=== PATIENT | male | born 1945 | race Caucasian/White ===

== ENCOUNTER 2018-03-09 20:16 | Emergency (ER) | payer BC ==
[~2018-03-09] VITALS: Ht 162.6 cm; Wt 88.0 kg
[2018-03-09 20:38] VITALS: Ht 162.6 cm; Wt 88.0 kg
[2018-03-09] MEDS ORDERED: METF100010 PO (22:16)
[2018-03-09] MEDS ORDERED: CYCL10TA7 PO (22:16)
[2018-03-09] MEDS ORDERED: ACET-141 PO (22:17)
[2018-03-09] MEDS ORDERED: NAPR-985 PO (23:36)
--- NOTE | 2018-03-09 23:36 | ERD ---
ER Documentation Chief Complaint Chief Complaint left leg swelling with no trauma reported HPI This 73-year-old male complains of left thigh pain and mild swelling. He denies any fevers chills nausea or vomiting. Denies any chest pain or shortness of breath. Denies any other current complaints. ROS All systems reviewed and are negative except as per history of present illness. Medications Home Meds Reported Medications Acetaminophen* (Acetaminophen*) 500 MG Extra Strength Tablet, 500 MG PO as needed PRN for PAIN AND OR ELEVATED TEMP, TAB 03/09/18 Cyclobenzaprine Hcl* (Cyclobenzaprine Hcl*) 10 Mg Tablet, 10 MG PO TID, #90 TAB 03/09/18 Metformin Hcl* (Metformin Hcl*) 1,000 Mg Tablet, 1000 MG PO WITH BREAKFAST DINNE, #60 TAB 03/09/18 Allergies Allergies: Coded Allergies: No Known Allergy (Unverified , 03/09/18) PMhx/Soc Medical and Surgical Hx: pt denies Surgical Hx Anesthesia Reaction: No Hx Neurological Disorder: No Hx Respiratory Disorders: No Hx Cardiac Disorders: No Hx Miscellaneous Medical Probl: Yes (DM) Hx Alcohol Use: No Hx Substance Use: No Hx Tobacco Use: No Smoking Status: Never smoker Physical Exam Vitals Vital Signs Date Temp Pulse Resp B/P (MAP) Pulse Ox O2 O2 Flow FiO2 Time Delivery Rate 03/09/18 97.4 81 18 180/83 98 Room Air 21:56 (115) 03/09/18 97.4 76 18 187/83 97 20:38 (117) Physical Exam Const: No acute distress Head: Atraumatic Eyes: Normal Conjunctiva ENT: Normal External Ears, Nose and Mouth. Neck: Full range of motion. No meningismus. Resp: Clear to auscultation bilaterally Cardio: Regular rate and rhythm, no murmurs Abd: Soft, non tender, non distended. Normal bowel sounds Skin: No petechiae or rashes Back: No midline or flank tenderness Ext: No cyanosis, or edema Neur: Awake and alert Psych: Normal Mood and Affect Procedures/MDM Medical decision making: Patient states that he has possibly had a mild contusion there but he does not remember. No evidence of DVT. Stable for outpatient management. Told to return for any worsening symptoms or any chest pain nausea vomiting fevers chills or shortness of breath Departure Diagnosis: Primary Impression: Myalgia Condition: Stable MOGHADAM,NAS S. Mar 09, 2018 23:36
[2018-03-09 23:45] VITALS: BP 169/92; PULSE 63; RESP 18
== END 2018-03-09 23:45 | disposition home or self-care (01) ==
LOC: FTE 20:16 → E/R 23:45
DX: M79.18 Myalgia, other site (principal); E11.9 Type 2 diabetes mellitus without complications; Z79.84 Long term (current) use of oral hypoglycemic drugs
CPT/HCPCS: 93971